=== PATIENT | female | born 1970 | race Caucasian/White ===

== ENCOUNTER 2021-10-30 20:15 | Emergency (ER) | payer BC ==
[~2021-10-30] VITALS: Ht 160 cm; Wt 116.2 kg
[2021-10-30] MEDS ORDERED: PRIM50TA33 (21:39)
[2021-10-30] MEDS ORDERED: ONDA4TAB11 (21:39)
[2021-10-30] MEDS ORDERED: LISI10TA25 (21:39)
[2021-10-30] MEDS ORDERED: CARV6.252 (21:39)
[2021-10-30] MEDS ORDERED: NITR100C10 (21:39)
--- NOTE | 2021-10-30 21:53 | ED Psychosocial ---
General Chief Complaint: Psych/Social Disorder Stated Complaint: SUICIDAL,COMING OFF DRUGS Nursing Triage Note: c/o "mental breakdown" wants comitted d/t missuse of rx drugs, depression/anxiety, insomnia x5 days. pt reports missuse of rx drugs x5 years. reports sx worse this week. seen at [facility] in [place] this week for same per pt. denies specific plan. Source: patient Exam Limitations: no limitations (RISHABH SALINAS) History of Present Illness Date Seen by Provider: Oct 30, 2021 Time Seen by Provider: 22:00 Initial Comments Patient is a 51-year-old female who presents ED for a "mental breakdown". Patient states she has a history of opiate abuse. Stopped taking hydrocodone last Wednesday. She states this was not a prescription and was given to her. Over the past 2 days she has had thoughts of wanting to hurt herself by cutting herself. She describes it as a mental breakdown. She states she has not been able to sleep, eat and started with diarrhea today. Patient states she went to [facility] and [facility] and they would not take her secondary to having a [place] address. Patient does not want to go home to her . She states that she leaves she will likely overdosed on her medication or cut herself. She denies of any other drug use, or alcohol use. No active hallucinations. Denies history of SI in the past. History of hypertension, asthma, anxiety and chronic tremor. Denies any fever, chills, nausea, vomiting, headache, dizziness. (RISHABH SALINAS) Allergies and Home Medications Allergies Coded Allergies: Sulfa (Sulfonamide Antibiotics) (Verified Allergy, Unknown, 10/30/21) Uncoded Allergies: steroids (Adverse Reaction, Unknown, 10/30/21) Patient Home Medication List Home Medication List Reviewed: Yes (RISHABH SALINAS) Carvedilol (Carvedilol) 6.25 Mg Tablet, (Reported) Entered as Reported by: CAMACHO MONTERO on 10/30/212138 Last Action: New Order Lisinopril (Lisinopril) 10 Mg Tablet, (Reported) Entered as Reported by: CAMACHO MONTERO on 10/30/212138 Last Action: New Order Nitrofurantoin Monohyd/M-Cryst (Nitrofurantoin Saline-Mcr 100 mg) 100 Mg Capsule, (Reported) Entered as Reported by: CAMACHO MONTERO on 10/30/212138 Last Action: New Order Ondansetron (Ondansetron Odt) 4 Mg Tab.rapdis, (Reported) Entered as Reported by: CAMACHO MONTERO on 10/30/212138 Last Action: New Order Primidone (Mysoline) 50 Mg Tablet, (Reported) Entered as Reported by: CAMACHO MONTERO on 10/30/212138 Last Action: New Order Review of Systems Constitutional: No see HPI, No chills, No diaphoresis EENTM: No hearing loss, No ear pain, No blurred vision, No double vision Respiratory: No cough, No dyspnea on exertion Cardiovascular: No chest pain Gastrointestinal: No abdominal pain, No diarrhea, No nausea, No vomiting Genitourinary: No decreased output, No discharge Musculoskeletal: No back pain, No joint pain Skin: No change in color, No change in hair/nails Psychiatric/Neurological: Other (SI) (RISHABH SALINAS) Past Gqqshnq-Oiwfgb-Itfiig Hx Patient Social History Tobacco Use?: No Substance use?: Yes Substance type: Misuse of prescript meds Substance frequency: Daily Alcohol Use?: Yes Alcohol Frequency: Rarely Pt feels they are or have been: No (RISHABH SALINAS) Immunizations Up To Date First/Initial COVID19 Vaccinat: 11/23 Second COVID19 Vaccination Aleks: 12/24 (RISHABH SLAINAS) Past Medical History Surgery/Hospitalization HX: [facility], appyendectomy, tubal htn, uti, depression, anxiety Nursing Suicide Risk Notes: c/o "mental breakdown" wants comitted d/t missuse of rx drugs, depression/anxiety, insomnia x5 days. pt reports missuse of rx drugs x5 years. reports sx worse this week. seen at [facility] in [place] this week for same per pt. denies specific plan. (RISHABH SALINAS) Physical Exam Vital Signs - First Documented 10/30/21 21:30 Temp 36.5 Pulse 70 Resp 16 B/P (MAP) 155/117 (130) Pulse Ox 93 O2 Delivery Room Air (VALERIA,PATRICK K DO) Capillary Refill : Less Than 3 Seconds (RISHABH SALINAS) Height, Weight, BMI Height: '" Weight: lbs. oz. kg; 45.00 BMI Method: General Appearance: WD/WN, no apparent distress HEENT: PERRL/EOMI, normal ENT inspection, TMs normal, pharynx normal Neck: non-tender, full range of motion, supple, normal inspection Respiratory: chest non-tender, lungs clear, normal breath sounds, no respira tory distress, no accessory muscle use Cardiovascular: regular rate, rhythm, no edema, no gallop, no JVD Gastrointestinal: normal bowel sounds, non tender, soft, no organomegaly Extremities: normal range of motion, non-tender, normal inspection, no pedal edema Neurologic/Psychiatric: director human services II-XII nml as tested, no motor/sensory deficits, alert, normal mood/affect Appearance/Memory: other (SI) Behavior/Eye Contact: cooperative Thoughts/Hallucinations: No no apparent hallucination, No auditory hallucinations, No delusions Skin: normal color, warm/dry (RISHABH SAILNAS) Suicide Risk Suicide Risk Suicide Risk Level / RN Screen: Low Low Suicide Risk Level []Suicidal Ideation WITHOUT method, intent, plan or behavior more than a month ago []]Modifiable risk factors and strong protective factors []No reported history of suicidal ideation or behavior []Patient reports/exhibits symptoms consistent with psychosis []Patient reports a plan that would be unrealistic/impossible to complete and intent []Suicide attempt prior to arrival (Indicates at LEAST Low Suicide Risk, consider other risk factors) Moderate Suicide Risk Level: []Suicidal ideation with method, WITHOUT plan, intent or behavior in the past month []Multiple risk factors and few protective factors []Patient reports intent to follow through on plan to end life if allowed to leave hospital, and has attempted to elope from the hospital High Suicide Risk Level: [] Suicidal ideation with intent or intent with a plan in the past month [] Patient has harmed self or attempted suicide while in the hospital [] Patient has hx of or current Command Auditory hallucinations to harm self or others that they follow without hesitation [] Patient refuses to disclose plan, and indicates intent to complete [] Patient reports plan that is possible to accomplish and/or has means to complete Risk factors supporting recommendation: [] Non-compliance with treatment (acute or chronic) [] Patient has access to or owns firearms and/or stockpiled medications [] Hx Impulsive behavior [] Pending incarceration or homelessness [] Sexual abuse [] Family history and/or exposure to suicide [] Adverse childhood experiences [] Exposure to violence or negative socio-political cultural, and economic forces [] Current or hx of substance use/abuse [] Chronic physical pain or other acute medical problem (AIDS, COPD, Cancer, etc) [] Perceived burden on family or others [] Patient has attempted to elope [] Unable to answer and/or unable to identify [] Refuses to agree to a safety plan Protective Factors supporting recommendation: [] Identifies reasons for living [] Future plans/goals [] Engaged in work or School [] Good family support network [] Good social support network [] Responsibility to family [] Belief that suicide is immoral, against their christianity beliefs [] High spirituality and involvement in gnosticist community [] Fear of or dying due to pain and suffering [] Established outpt psychiatric services [] Unable to answer and/or unable to identify Risk Assessment Tool Score: Low (RISHABH SALINAS) Progress/Results/Core Measures Results/Orders Lab Results Laboratory Tests Test 10/30/21 22:00 10/30/21 22:06 10/30/21 22:26 Range/Units Sodium Level 140 135-145 MMOL/L Potassium Level 3.4 L 3.6-5.0 MMOL/L Chloride Level 102 98-107 MMOL/L Carbon Dioxide Level 24 21-32 MMOL/L Anion Gap 14 5-14 MMOL/L Blood Urea Nitrogen 6 L 7-18 MG/DL Creatinine 0.80 0.60-1.30 MG/DL Estimat Glomerular Filtration Rate 89 BUN/Creatinine Ratio 8 Glucose Level 105 70-105 MG/DL Calcium Level 9.9 8.5-10.1 MG/DL Corrected Calcium 9.7 8.5-10.1 MG/DL Total Bilirubin 1.0 0.1-1.0 MG/DL Aspartate Amino Transf (AST/SGOT) 27 5-34 U/L Alanine Aminotransferase (ALT/SGPT) 31 0-55 U/L Alkaline Phosphatase 53 40-136 U/L Total Protein 7.7 6.4-8.2 GM/DL Albumin 4.3 3.2-4.5 GM/DL Salicylates Level < 5.0 L 5.0-20.0 MG/DL Urine Opiates Screen NEGATIVE NEGATIVE Urine Oxycodone Screen NEGATIVE NEGATIVE Urine Methadone Screen NEGATIVE NEGATIVE Urine Propoxyphene Screen NEGATIVE NEGATIVE Acetaminophen Level < 10 L 10-30 UG/ML Urine Barbiturates Screen POSITIVE H NEGATIVE Ur Tricyclic Antidepressants Screen NEGATIVE NEGATIVE Urine Phencyclidine Screen NEGATIVE NEGATIVE Urine Amphetamines Screen NEGATIVE NEGATIVE Urine Methamphetamines Screen NEGATIVE NEGATIVE Urine Benzodiazepines Screen NEGATIVE NEGATIVE Urine Cocaine Screen NEGATIVE NEGATIVE Urine Cannabinoids Screen NEGATIVE NEGATIVE Serum Alcohol < 10 <10 MG/DL Urine Color YELLOW Urine Clarity SL CLOUDY Urine pH 6.0 5-9 Urine Specific [place] 1.015 L 1.016-1.022 Urine Protein NEGATIVE NEGATIVE Urine Glucose (UA) NEGATIVE NEGATIVE Urine Ketones TRACE H NEGATIVE Urine Nitrite NEGATIVE NEGATIVE Urine Bilirubin NEGATIVE NEGATIVE Urine Urobilinogen 0.2 < = 1.0 MG/DL Urine Leukocyte Esterase 2+ H NEGATIVE Urine RBC (Auto) TRACE-I H NEGATIVE Urine RBC 0-2 /HPF Urine WBC 10-25 H /HPF Urine Squamous Epithelial Cells 0-2 /HPF Urine Renal Epithelial Cells NONE /HPF Urine Crystals NONE /LPF Urine Bacteria NEGATIVE /HPF Urine Casts NONE /LPF Urine Mucus SMALL H /LPF Urine Culture Indicated YES Influenza Type A (RT-PCR) Not Detected Not Detecte Influenza Type B (RT-PCR) Not Detected Not Detecte SARS-CoV-2 RNA (RT-PCR) Not Detected Not Detecte White Blood Count 6.3 4.3-11.0 10^3/uL Red Blood Count 5.29 H 3.80-5.11 10^6/uL Hemoglobin 13.1 11.5-16.0 g/dL Hematocrit 45 35-52 % Mean Corpuscular Volume 85 80-99 fL Mean Corpuscular Hemoglobin 25 25-34 pg Mean Corpuscular Hemoglobin Concent 29 L 32-36 g/dL Red Cell Distribution Width 17.7 H 10.0-14.5 % Platelet Count 113 L 130-400 10^3/uL Mean Platelet Volume 9.0-12.2 fL Immature Granulocyte % (Auto) 1 % Neutrophils (%) (Auto) 71 42-75 % Lymphocytes (%) (Auto) 19 12-44 % Monocytes (%) (Auto) 7 0-12 % Eosinophils (%) (Auto) 2 0-10 % Basophils (%) (Auto) 1 0-10 % Neutrophils # (Auto) 4.4 1.8-7.8 10^3/uL Lymphocytes # (Auto) 1.2 1.0-4.0 10^3/uL Monocytes # (Auto) 0.5 0.0-1.0 10^3/uL Eosinophils # (Auto) 0.1 0.0-0.3 10^3/uL Basophils # (Auto) 0.1 0.0-0.1 10^3/uL Immature Granulocyte # (Auto) 0.0 0.0-0.1 10^3/uL Percent Immature Platelet Fraction 6.6 0.0-7.6 % (VALERIA,PATRICK K DO) My Orders Orders - VALERIAPATRICK K DO Nitrofurantoin Capsule,Macro (Macrobid C (10/31/21 02:15) Lisinopril Tablet (Zestril Tablet) (10/31/21 03:00) Carvedilol Tablet (Coreg Tablet) (10/31/21 03:00) Primidone Tablet (Mysoline Tablet) (10/31/21 03:00) Acetaminophen Tablet (Tylenol Tablet) (10/31/21 06:00) Acetaminophen Tablet (Tylenol Tablet) (10/31/21 21:00) Diphenhydramine Tablet (Benadryl Tablet) (10/31/21 21:00) Carvedilol Tablet (Coreg Tablet) (10/31/21 21:00) Nitrofurantoin Capsule,Macro (Macrobid C (10/31/21 21:00) Phenazopyridine Tablet (Pyridium Tablet) (11/01/21 03:15) Ibuprofen Tablet (Motrin Tablet) (11/01/21 03:15) (VALERIA,PATRICK K DO) Medications Given in ED Current Medications Medications Dose Ordered Sig/Vale Route Start Time Stop Time Status Last Admin Dose Admin Acetaminophen 1,000 mg ONCE ONCE PO 10/31/21 21:00 10/31/21 21:01 DC 10/31/21 21:14 1,000 MG Carvedilol 6.25 mg ONCE ONCE PO 10/31/21 21:00 10/31/21 21:01 DC 10/31/21 21:14 6.25 MG Diphenhydramine HCl 50 mg ONCE ONCE PO 10/31/21 21:00 10/31/21 21:01 DC 10/31/21 21:15 50 MG Ibuprofen 800 mg ONCE ONCE PO 11/01/21 03:15 11/01/21 03:16 DC 11/01/21 03:29 800 MG Nitrofurantoin Macrocrystals 100 mg ONCE ONCE PO 10/31/21 21:00 10/31/21 21:01 DC 10/31/21 21:15 100 MG Phenazopyridine HCl 200 mg ONCE ONCE PO 11/01/21 03:15 11/01/21 03:16 DC 11/01/21 03:28 200 MG (VALERIA,PATRICK K DO) Vital Signs/I&O 10/31/21 11/01/21 20:01 02:58 Temp 36.3 36.4 Pulse 68 66 Resp 16 18 B/P (MAP) 129/79 160/90 Pulse Ox 98 99 O2 Delivery Room Air Room Air (VALERIA,PATRICK K DO) Blood Pressure Mean: 130 Progress Progress Note : Progress Note 2300--ASSUMED CARE OF PT AT END OF SHIFT. PT HAS BEEN CLEARED MEDICALLY, [facility] HAS BEEN CONTACTED AND ALL OF PT'S INFORMATION HAS BEEN FAXED TO THEM AND VERIFIED THEY HAVE RECEIVED IT. AWAITING MENTAL HEALTH SCREEN. PT IS CALM AND COOPERATIVE AT THIS TIME 0025--CALLED [facility]. THEY REPORT THAT SCREENER IS CURRENTLY REVIEWING ALL OF PT'S PAPERWORK AND THEY WILL CONTACT US WHEN THEY ARE READY TO DO TELE-VISIT. PT HAS BEEN UPDATED ON THE PROCESS. 0145--MENTAL HEALTH SCREEN HAS BEEN COMPLETED. 0150--I SPOKE WITH MENTAL HEALTH SCREENER VIA TELE-VISIT, ALONG WITH THE PATIENT.. SHE ADVISES INPATIENT TREATMENT, NO BEDS CURRENTLY AVAILABLE, THEY WILL START SEARCH FOR PLACEMENT SOMETIME LATER THIS MORNING. LIKELY AFTER 10 AM. 0210-- IS HERE TO SEE PT, AND DISCUSSED PLAN OF CARE WITH HIM, WELL REPEATED THE PLAN WITH PT AGAIN. ALL QUESTIONS ANSWERED. 0255--PT STATES SHE HAS NOT HAD ANY OF HER MEDICATIONS TODAY AND WOULD LIKE TO TAKE THEM NOW. ROUTINE DOSES OF LISINIPRIL, COREG, PRIMIDONE ORDERED. PT WAS ALSO GIVEN MACROBID FOR UTI. 0550--PT REQUESTING TYLENOL FOR GENERALIZED UNCOMFORTABLE-NESS. PT HAS NOT SLEPT ALL NIGHT AND HAS BEEN UP WALKING AROUND IN ROOM AND TO AND FROM BATHROOM SEVERAL TIMES DURING THE NIGHT. COMFORT MEASURES ATTEMPTED TO COAX HER TO SLEEP WERE UNSUCCESSFUL--BLANKETS, LIGHTS OUT, ETC. 0600--CARE TURNED OVER TO DR. MEDRANO AT SHIFT CHANGE. PLACEMENT IS STILL PENDING AT THIS TIME. DIET HAS BEEN ORDERED FOR PT 1800--ASSUMED CARE OF PT AGAIN AT SHIFT CHANGE. PT HAS BEEN ACCEPTED AT [facility]. TRANSPORT ARRANGEMENTS ARE PENDING. HAVE BEEN ADVISED THAT [facility] HAS BEEN CONTACTED, AND WILL BE ABLE TO TRANSPORT PT IN THE MORNING. 0300--PT WANTING SOMETHING FOR PAIN "WHERE MY UTI IS" --PYRIDIUM AND MOTRIN ORDERED 0600--CARE TURNED OVER TO DR. HAZEL AT SHIFT CHANGE. (PATRICK SHAW DO) Progress Note : Time: 15:37 Progress Note A bed was finally obtained by [facility] for the patient at [facility]. Accepted by Dr Galeas. Patient assessed and is "nervous" with her tremors coming back. SHe is complaining of some nausea and requested her BP pill. VSS. SHe was reassured. We are attempting to find transport for the patient to [place]. I am also giving her some phenergan and her primidone. (HUY MEDRANO MD) Progress Note : Time: 09:30 Progress Note I assumed care of this patient from Dr. SHAW for supervision while awaiting transport to her psychiatric admission at [facility] in [place], [place]. I contacted [facility] and confirmed transportation is being arranged by [facility]. Patient received her morning Coreg and Macrobid doses. She has had no issue. The transporter for [facility] is now here to take the patient. (TREMAINE HAZEL MD) Comment Sinus rhythm, moderate T wave abnormality 62 bpm, QRS duration 82 MS, QTc 359 MS (RISHABH SALINAS) Initial ECG Impression Date: Oct 30, 2021 Initial ECG Impression Time: 22:10 Initial ECG Rate: 62 Initial ECG Rhythm: Normal Sinus Initial ECG Impression: Nonspecific Changes Initial ECG Comparisson: No Previous ECG Available (PATRICK SHAW DO) Departure Impression Primary Impression: Suicidal ideation Additional Impressions: Drug abuse UTI (urinary tract infection) Disposition: 02 XFER SHT-TRM HOSP Condition: Stable Transfer Transfer Reason: Exceeds level of care Time Spoke to Accepting Phy: 15:00 Transfer Progress Notes Accepted by Dr Galeas Transfer Facility: [facility] (HUY MEDRANO MD) Transfer Time: 09:31 (TREMAINE HAZEL MD) Departure-Patient Inst. Decision time for Depature: 21:52 (RISHABH SALINAS) Ref[facility]: [facility] [place] Patient Instructions: Suicide Prevention RISHABH SALINAS Oct 30, 2021 21:53 PATRICK SHAW DO Oct 31, 2021 01:22 HUY MEDRANO MD Oct 31, 2021 15:40 TREMAINE HAZEL MD Nov 01, 2021 09:32
[2021-10-30 22:13] LABS: BILIRUBIN,URINE NEGATIVE (NEGATIVE); CLARITY,URINE SL CLOUDY; COLOR,URINE YELLOW; GLUCOSE, URINE (UA) NEGATIVE (NEGATIVE); KETONES,URINE TRACE (NEGATIVE); LEUKOCYTE ESTERASE ,URINE 2+ (NEGATIVE); NITRITE,URINE NEGATIVE (NEGATIVE); PROTEIN,URINE NEGATIVE (NEGATIVE)
[2021-10-30 22:19] LABS: BACTERIA,URINE NEGATIVE /HPF; RBC,URINE 0-2 /HPF; SQUAMOUS EPITHELIAL CELL,UR 0-2 /HPF
[2021-10-30 22:21] LABS: CHLORIDE 102 MMOL/L (98-107); POTASSIUM 3.4 MMOL/L (3.6-5.0); SODIUM 140 MMOL/L (135-145)
[2021-10-30 22:22] LABS: ALBUMIN 4.3 GM/DL (3.2-4.5)
[2021-10-30 22:23] LABS: AMPHETAMINE SCREEN, URINE NEGATIVE (NEGATIVE); BARBITURATE SCREEN URINE POSITIVE (NEGATIVE); BENZODIAZEPINES SCREEN URINE NEGATIVE (NEGATIVE); CALCIUM 9.9 MG/DL (8.5-10.1); CANNABINOID SCREEN, URINE NEGATIVE (NEGATIVE); COCAINE SCREEN URINE NEGATIVE (NEGATIVE); METHADONE STAT NEGATIVE (NEGATIVE); OPIATE SCREEN URINE NEGATIVE (NEGATIVE); OXYCODONE STAT NEGATIVE (NEGATIVE); PROPOXYPHENE STAT NEGATIVE (NEGATIVE); TRICYCLIC ANTIDEPRESSANTS SCRE NEGATIVE (NEGATIVE)
[2021-10-30 22:24] LABS: GLUCOSE 105 MG/DL (70-105); TOTAL PROTEIN 7.7 GM/DL (6.4-8.2)
[2021-10-30 22:25] LABS: CARBON DIOXIDE 24 MMOL/L (21-32)
[2021-10-30 22:28] LABS: ALKALINE PHOSPHATASE 53 U/L (40-136); GFR ESTIMATED 89
[2021-10-30 22:29] LABS: BUN/CREATININE RATIO 8
[2021-10-30 22:30] LABS: BASOPHILS # (AUTO) 0.1 10^3/uL (0.0-0.1); BASOPHILS % (AUTO) 1 % (0-10); HEMATOCRIT 45 % (35-52)
[2021-10-30 22:31] LABS: ALANINE AMINOTRANSFERASE 31 U/L (0-55); SALICYLATE < 5.0 MG/DL (5.0-20.0)
[2021-10-30 22:32] LABS: EOSINOPHILS # (AUTO) 0.1 10^3/uL (0.0-0.3); EOSINOPHILS % (AUTO) 2 % (0-10); HEMOGLOBIN 13.1 g/dL (11.5-16.0); LYMPHOCYTES # (AUTO) 1.2 10^3/uL (1.0-4.0); LYMPHOCYTES % (AUTO) 19 % (12-44); MEAN CORPUSCULAR HEMOGLOBIN 25 pg (25-34); MEAN CORPUSCULAR HGB CONC 29 g/dL (32-36); MEAN CORPUSCULAR VOLUME 85 fL (80-99); MONOCYTES # (AUTO) 0.5 10^3/uL (0.0-1.0); MONOCYTES % (AUTO) 7 % (0-12); NEUTROPHILS # (AUTO) 4.4 10^3/uL (1.8-7.8); NEUTROPHILS % (AUTO) 71 % (42-75); PLATELET COUNT 113 10^3/uL (130-400); WHITE BLOOD COUNT 6.3 10^3/uL (4.3-11.0)
[2021-10-30 22:37] LABS: ACETAMINOPHEN < 10 UG/ML (10-30)
[2021-10-31] MEDS ORDERED: NITROFURANTOIN 100 MG (MACROBID) CAPSULE PO ONE ×3 (02:15→21:00)
[2021-10-31] MEDS ORDERED: lisINopril 10 MG (PRINIVIL) TABLET PO ONE (03:00)
[2021-10-31] MEDS ORDERED: PRIMIDONE 50 MG TAB (MYSOLINE) PO ONE ×2 (03:00→15:45)
[2021-10-31] MEDS ORDERED: ACETAMINOPHEN 500 MG TAB (TYLENOL) PO ONE ×2 (06:00→21:00)
[2021-10-31] MEDS ORDERED: PROMETHAZINE 25 MG (PHENERGAN) TAB PO ONE (15:45)
[2021-10-31] MEDS ORDERED: diphenhydrAMINE 25 MG TAB (BENADRYL) PO ONE (21:00)
[2021-11-01] MEDS ORDERED: IBUPROFEN 800 MG (MOTRIN) TAB PO ONE ×2 (03:15→03:21)
[2021-11-01] MEDS ORDERED: PHENAZOPYRIDINE 100 MG (PYRIDIUM) TABLET PO ONE (03:15)
[2021-11-01] MEDS ORDERED: PHENAZOPYRIDINE 100 MG (PYRIDIUM) TABLET ONE (03:23)
[2021-11-01] MEDS ORDERED: NITROFURANTOIN 100 MG (MACROBID) CAPSULE PO ONE ×2 (06:45→06:46)
[2021-11-01 09:30] VITALS: BP 131/80
== END 2021-11-01 09:30 | disposition short-term general hospital (02) ==
LOC: ER 20:22
DX: R45.851 Suicidal ideations (principal); F19.10 Other psychoactive substance abuse, uncomplicated; N39.0 Urinary tract infection, site not specified; Z79.891 Long term (current) use of opiate analgesic; Z20.822 Contact with and (suspected) exposure to COVID-19
CPT/HCPCS: 80053; 80306; 81000; 85025; 87088; 87636; 93005; 99283; G0480 ×3; 36415; 80320; 80329